=== PATIENT | female | born 1965 | race Caucasian/White ===

== ENCOUNTER 2018-05-12 14:05 | Inpatient (IN) ==
[2018-05-12 15:31] LABS: Bilirubin,Urine Negative (Negative); Blood,Urine Negative (Negative); Clarity,Urine Clear (Clear); Color,Urine Yellow (Yellow); Glucose,Urine (UA) >=1000 mg/dL (Normal); Ketones,Urine Negative (Negative); Leukocyte Esterase,Urine Small (Negative); Nitrite,Urine Negative (Negative); Protein,Urine Negative (Neg-Trace); Specific Gravity,Urine > 1.030 (1.010-1.025); Urobilinogen,Urine Normal (Normal)
[2018-05-12 15:45] LABS: Bacteria,Urine Few per hpf (None-Few); RBC,Urine 0-3 per hpf (0-3); Squamous Epithelial Cell,Urine Few per lpf (None-Few); WBC,Urine 0-3 per hpf (0-3); Yeast,Urine Few per hpf (None Seen)
[2018-05-12] MEDS ORDERED: Ondansetron 4 MG/2 ML VIAL IVP ONE ×2 (16:00→16:52)
--- NOTE | 2018-05-12 16:15 | Emergency Department Note ---
Disposition Clinical Impression: Abdominal pain, Dehydration, Hyperglycemia Disposition: Admitted As Inpatient Condition: Fair Time of Disposition: 17:59 General Adult HPI - General Chief complaint: ED Abdominal Pain Stated complaint: "abd pain,have crohn's" Time Seen by Provider: 05/12/18 15:33 Source: patient Limitations: no limitations Nursing Notes Reviewed: Yes Vital Signs Reviewed: Yes - History of Present Illness HPI Narrative: 52-year-old female presents to the ED with 2 days of abdominal pain, nausea, and vomiting. She has a history of Crohn's disease with a colostomy and ileostomy both reversed. She also has a long and complicated history to include type 2 diabetes, fibromyalgia, 2 heart attacks and 2 strokes. She has been unable to tolerate solid food intake although she is still taking in liquids. She has noted decreased urine output and when she does produce urine it is clear in color. She notes a sensation of frequency and urgency along with some cramping while she is urinating. She also notes that she has had a change in the caliber and quality of her stool it is normally liquid, but yesterday it was far more solid. She describes her abdominal pain as sharp and crampy in nature and diffuse in location although worse on the right side. The pain is constant, it does not radiate, nothing makes it better, nothing makes it worse, and it is rated as a 10 out of 10 in severity. She also notes that her blood sugars have been elevated in the 500 range whereas normal for her is in the 120's. She reports checking her sugars four times daily. Onset (ago): day(s) (1) Location: abdomen Pain Scale: 10 - Related Data Home Medications Medication Instructions Recorded Confirmed Insulin ASPART [NovoLOG] 10 unit SQ TIDWM 05/12/18 05/12/18 Insulin DETEMIR [Levemir] 50 unit SQ HS 05/12/18 05/12/18 Trazodone HCl 300 mg PO HS 05/12/18 05/12/18 Allergies Allergy/AdvReac Type Severity Reaction Status Date / Time aspirin Allergy Anaphylaxis Verified 05/12/18 14:13 Cefaclor [From Ceclor] Allergy Rash Verified 05/12/18 14:13 cephalexin [From Keflex] Allergy Rash Verified 05/12/18 14:13 Diclofenac [From Voltaren] Allergy Rash Verified 05/12/18 14:13 diphenhydramine Allergy Rash Verified 05/12/18 14:13 [From Benadryl] fentanyl Allergy Rash Verified 05/12/18 14:13 ketorolac [From Toradol] Allergy Rash Verified 05/12/18 14:13 latex Allergy Rash Verified 05/12/18 14:13 Penicillins Allergy Anaphylaxis Verified 05/12/18 14:13 prochlorperazine Allergy Rash Verified 05/12/18 14:13 [From Compazine] promethazine [From Phenergan] Allergy Rash Verified 05/12/18 14:13 Sulfa (Sulfonamide Allergy Rash Verified 05/12/18 14:13 Antibiotics) sulfamethoxazole Allergy Rash Verified 05/12/18 14:13 [From Bactrim] sumatriptan [From Imitrex] Allergy Rash Verified 05/12/18 14:13 tramadol Allergy Rash Verified 05/12/18 14:13 trimethoprim [From Bactrim] Allergy Rash Verified 05/12/18 14:13 Constitutional: Denies: fever, chills Eyes: Denies: eye pain, eye discharge, vision change ENT ED: Denies: ear pain, throat pain, dental pain, hearing loss, epistaxis, congestion, dysphagia Cardiovascular: Denies: chest pain, palpitations Respiratory: Denies: cough, wheezes Gastrointestinal: Reports: abdominal pain, nausea, vomiting Genitourinary: Reports: urgency, frequency. Denies: dysuria Musculoskeletal: Reports: back pain (bilateral, near T10) Integumentary: Denies: rash, abrasion, lesions Neurological: Reports: headache. Denies: weakness, numbness, paresthesias Psychiatric: Denies: anxiety, depression, suicidal thoughts, homicidal thoughts , auditory hallucinations, visual hallucinations Endocrine: Reports: fatigue, polydipsia Hematological/Lymphatic: Denies: easy bleeding, easy bruising Past Medical History - Past Medical History Source: patient Medical history: Reports: coronary artery disease, CVA, diabetes, fibromyalgia, myocardial infarction Surgical history: Reports: appendectomy, cholecystectomy, colostomy, hysterectomy, other (ileostomy, colostomy and ileostomy reversal) Psychiatric history: Reports: anxiety, depression - Social History Smoking Status: Current every day smoker Smokeless Tobacco Status: No Alcohol use: Reports: none Drug use: Reports: none Physical Exam - General Limitations: no limitations General appearance: alert, in no apparent distress - Head Head exam: atraumatic, normocephalic - Eye Eye exam: Present: normal appearance, PERRL - ENT ENT exam: normal oropharynx, mucous membranes dry - Neck Neck exam: Present: normal inspection - Chest Chest inspection: Present: symmetric chest wall rise - Respiratory Respiratory exam: Present: normal lung sounds bilaterally - Cardiovascular Cardiovascular exam: Present: regular rate, normal rhythm, normal heart sounds - Abdominal Exam Abdominal exam: Present: soft, tenderness, normal bowel sounds Abdominal tenderness: Present: suprapubic, diffuse - Extremities Exam Extremities exam: Present: normal inspection - Expanded Lower Extremity Exam Lower leg exam: Present: normal inspection. Absent: swelling - Back Exam Back exam: Present: CVA tenderness (R), CVA tenderness (L) - Neurological Exam Neurological exam: Present: alert, oriented X3 - Expanded Neurological Exam Motor strength - LUE: 5/5 Motor strength - RUE: 5/5 - Psychiatric Psychiatric exam: Present: normal affect - Skin Skin exam: Present: warm, dry, normal color Course Vital Signs Temperature 98 F 05/12/18 14:06 Pulse Rate 88 05/12/18 14:06 Respiratory Rate 18 05/12/18 14:06 Blood Pressure 144/88 05/12/18 14:06 O2 Sat by Pulse Oximetry 98 05/12/18 14:06 Temperature 98 F 05/12/18 14:06 Pulse Rate 88 05/12/18 14:06 Respiratory Rate 18 05/12/18 14:06 Blood Pressure 144/88 05/12/18 14:06 O2 Sat by Pulse Oximetry 98 05/12/18 14:06 Oxygen Delivery Oxygen Delivery Room Air Medical Decision Making - [facility] Narrative Medical decision making narrative: 52 year old patient presented to the ED with complaints of nausea, vomiting, and abdominal pain after moving over the weekend in the heat. Patient was given Zofran for nausea, had labs drawn, and went for a non-contrast CT scan of the Abd and pelvis. Patient's lab results showed that glucose was over 700 and sodium was 125, whereas CT was unremarkable. Hyperosmolar hyperglycemic state was the presumptive diagnosis and fluid repletion was started through peripheral IV. Pt was given morphine for pain. Will continue to monitor glucose with bedside glucose checks and replete fluids as necessary. Spoke with the hospitalist paper conservator and he agreed to admit the patient and asked that we start an insulin drip along with fluids in the department with continued glucose measurement. - Lab Data Result diagrams: 05/12/18 16:14 05/12/18 16:15 Lab Results 05/12/18 05/12/18 05/12/18 Range/Units 15:18 16:14 16:14 WBC 9.1 (4.3-11.1) K/mcL RBC 4.92 (3.82-4.97) M/mcL Hgb 14.4 (11.5-15.4) g/dL Hct 42.5 (35.3-44.9) % MCV 86.4 (83.0-100.0) fL MCH 29.3 (28.0-33.3) pg MCHC 33.9 (31.6-35.5) g/dL RDW 13.1 (11.5-14.5) % Plt Count 162 (140-400) K/mcL MPV 13.0 H (9.4-12.4) fL Immature Gran % 0.6 (0-4) % Seg Neutrophils % 72.8 % Lymphocytes % 20.0 % Monocytes % 4.7 % Eosinophils % 1.5 % Basophils % 0.4 % Neutrophils # 6.6 (1.6-8.9) K/mcL Lymphocytes # 1.8 (0.6-4.6) K/mcL Monocytes # 0.4 (0.0-1.3) K/mcL Eosinophils # 0.1 (0.0-0.6) K/mcL Basophils # 0.0 (0.0-0.2) K/mcL VBG pH (7.32-7.42) pH Units VBG pCO2 (41-51) mmHg VBG pO2 (25-50) mmHg VBG HCO3 (21-27) mEq/L Sodium (136-145) mEq/L Potassium (3.5-5.1) mEq/L Chloride (98-107) mEq/L Carbon Dioxide (23-29) mEq/L BUN (6-20) mg/dL Creatinine (0.60-1.20) mg/dL Est GFR ( Amer) (> 60) Est GFR (Non-Af Amer) (> 60) BUN/Creatinine Ratio (6-26) Glucose (70-105) mg/dL Est Mean Plasma Glucose mg/dl Hemoglobin A1c ( - 5.6) % Calculated Osmolality (280-300) Calcium (8.6-10.3) mg/dL Total Bilirubin (0.3-1.0) mg/dL Direct Bilirubin (0.0-0.2) mg/dL Indirect Bilirubin (0.0-1.2) mg/dL AST (13-39) Units/L ALT (7-52) Units/L Alkaline Phosphatase (34-104) Units/L Serum Total Protein (6.4-8.9) g/dL Albumin (3.5-5.7) g/dL Globulin (2.4-3.5) g/dL Albumin/Globulin Ratio (1.1-2.2) Amylase (29-103) Units/L Lipase (11-82) Units/L Beta-Hydroxybutyric Acd 0.88 H (0.02-0.27) mmol/L Urine Color Yellow (Yellow) Urine Clarity Clear (Clear) Urine pH 6.0 (5.0-8.0) pH Units Ur Specific [place] > 1.030 H (1.010-1.025) Urine Protein Negative (Neg-Trace) mg/dL Urine Glucose (UA) >=1000 H (Normal) mg/dL Urine Ketones Negative (Negative) mg/dL Urine Blood Negative (Negative) Urine Nitrite Negative (Negative) Urine Bilirubin Negative (Negative) Urine Urobilinogen Normal (Normal) mg/dL Ur Leukocyte Esterase Small H (Negative) Urine Microscopic RBC 0-3 (0-3) per hpf Urine Microscopic WBC 0-3 (0-3) per hpf Ur Squamous Epith Cells Few (None-Few) per lpf Urine Bacteria Few (None-Few) per hpf Urine Yeast Few H (None Seen) per hpf Ur Culture Indicated? YES A (NO) 05/12/18 05/12/18 05/12/18 Range/Units 16:15 17:06 17:16 WBC (4.3-11.1) K/mcL RBC (3.82-4.97) M/mcL Hgb (11.5-15.4) g/dL Hct (35.3-44.9) % MCV (83.0-100.0) fL MCH (28.0-33.3) pg MCHC (31.6-35.5) g/dL RDW (11.5-14.5) % Plt Count (140-400) K/mcL MPV (9.4-12.4) fL Immature Gran % (0-4) % Seg Neutrophils % % Lymphocytes % % Monocytes % % Eosinophils % % Basophils % % Neutrophils # (1.6-8.9) K/mcL Lymphocytes # (0.6-4.6) K/mcL Monocytes # (0.0-1.3) K/mcL Eosinophils # (0.0-0.6) K/mcL Basophils # (0.0-0.2) K/mcL VBG pH 7.53 H (7.32-7.42) pH Units VBG pCO2 25 L (41-51) mmHg VBG pO2 199 H (25-50) mmHg VBG HCO3 21 (21-27) mEq/L Sodium 125 L (136-145) mEq/L Potassium 3.9 (3.5-5.1) mEq/L Chloride 93 L (98-107) mEq/L Carbon Dioxide 23 (23-29) mEq/L BUN 5 L (6-20) mg/dL Creatinine 0.89 (0.60-1.20) mg/dL Est GFR ( Amer) > 60 (> 60) Est GFR (Non-Af Amer) > 60 (> 60) BUN/Creatinine Ratio 6 (6-26) Glucose 778 H* (70-105) mg/dL Est Mean Plasma Glucose 384 mg/dl Hemoglobin A1c 15.0 H ( - 5.6) % Calculated Osmolality 295 (280-300) Calcium 8.9 (8.6-10.3) mg/dL Total Bilirubin 0.6 (0.3-1.0) mg/dL Direct Bilirubin 0.1 (0.0-0.2) mg/dL Indirect Bilirubin 0.5 (0.0-1.2) mg/dL AST 20 (13-39) Units/L ALT 20 (7-52) Units/L Alkaline Phosphatase 128 H (34-104) Units/L Serum Total Protein 6.7 (6.4-8.9) g/dL Albumin 3.9 (3.5-5.7) g/dL Globulin 2.8 (2.4-3.5) g/dL Albumin/Globulin Ratio 1.4 (1.1-2.2) Amylase < 10 L (29-103) Units/L Lipase 20 (11-82) Units/L Beta-Hydroxybutyric Acd (0.02-0.27) mmol/L Urine Color (Yellow) Urine Clarity (Clear) Urine pH (5.0-8.0) pH Units Ur Specific [place] (1.010-1.025) Urine Protein (Neg-Trace) mg/dL Urine Glucose (UA) (Normal) mg/dL Urine Ketones (Negative) mg/dL Urine Blood (Negative) Urine Nitrite (Negative) Urine Bilirubin (Negative) Urine Urobilinogen (Normal) mg/dL Ur Leukocyte Esterase (Negative) Urine Microscopic RBC (0-3) per hpf Urine Microscopic WBC (0-3) per hpf Ur Squamous Epith Cells (None-Few) per lpf Urine Bacteria (None-Few) per hpf Urine Yeast (None Seen) per hpf Ur Culture Indicated? (NO) Attestation Statement - Attestation Attestation: I, Tom Maxwell DO, examined this patient [id number] and my medical decision-making was reviewed with Dr. Lexi Rosado, Resident Physician. I agree with the documented findings, disposition and treatment plan as described except to the extent set forth below. Please see my progress notes for details.
[2018-05-12 16:51] LABS: Alanine Aminotransferase 20 Units/L (7-52); Albumin 3.9 g/dL (3.5-5.7); Albumin/Globulin Ratio 1.4 (1.1-2.2); Alkaline Phosphatase 128 Units/L (34-104); Amylase < 10 Units/L (29-103); Aspartate Amino Transferase 20 Units/L (13-39); BUN/Creatinine Ratio 6 (6-26); Bilirubin,Direct 0.1 mg/dL (0.0-0.2); Bilirubin,Indirect 0.5 mg/dL (0.0-1.2); Bilirubin,Total 0.6 mg/dL (0.3-1.0); Blood Urea Nitrogen 5 mg/dL (6-20); Calcium 8.9 mg/dL (8.6-10.3); Carbon Dioxide 23 mEq/L (23-29); Chloride 93 mEq/L (98-107); Globulin 2.8 g/dL (2.4-3.5); Glucose 778 mg/dL (70-105); Lipase 20 Units/L (11-82); Osmolality,Calculated 295 (280-300); Potassium 3.9 mEq/L (3.5-5.1); Sodium 125 mEq/L (136-145); Total Protein 6.7 g/dL (6.4-8.9); eGFR For African Americans > 60 (> 60); eGFR For Non-African Americans > 60 (> 60)
[2018-05-12] MEDS ORDERED: *HR* Morphine 2 MG/ML SYRINGE IVP ONE (16:52)
[2018-05-12] MEDS ORDERED: 0.9 % Sodium Chloride 1,000 ML IVC ONE (16:52)
[2018-05-12 17:11] LABS: Basophils % 0.4 %; Eosinophils # 0.1 K/mcL (0.0-0.6); Eosinophils % 1.5 %; Hematocrit 42.5 % (35.3-44.9); Hemoglobin 14.4 g/dL (11.5-15.4); Immature Granulocytes % 0.6 % (0-4); Lymphocytes # 1.8 K/mcL (0.6-4.6); Mean Corpuscular HGB Conc 33.9 g/dL (31.6-35.5); Mean Corpuscular Hemoglobin 29.3 pg (28.0-33.3); Mean Corpuscular Volume 86.4 fL (83.0-100.0); Monocytes # 0.4 K/mcL (0.0-1.3); Monocytes % 4.7 %; Neutrophils # 6.6 K/mcL (1.6-8.9); Platelet Count 162 K/mcL (140-400); Red Blood Count 4.92 M/mcL (3.82-4.97); Red Cell Distribution Width 13.1 % (11.5-14.5); Segmented Neutrophils % 72.8 %
[2018-05-12 17:18] LABS: VBG HCO3 21 mEq/L (21-27); VBG PCO2 25 mmHg (41-51); VBG PH 7.53 pH Units (7.32-7.42); VBG PO2 199 mmHg (25-50)
[2018-05-12] MEDS ORDERED: *HR* Dextrose 50 % in Water (Syg) 50 ML SYRINGE IVP PRN (17:29)
[2018-05-12] MEDS ORDERED: Insulin Regular, Human 100 UNIT/ML IV ONE (17:32)
[2018-05-12] MEDS: 0.9 % Sodium Chloride 1,000 ML IVC SCH ×2 (17:42→18:52)
[2018-05-12] MEDS ORDERED: Insulin Human Regular 100 UNIT in 0.9 % Sodium Chloride 100 ML IVC SCH ×2 (18:00→21:30)
[2018-05-12 18:01] LABS: Estimated Average Glucose 384 mg/dl
--- NOTE | 2018-05-12 18:06 | Emergency Department Note ---
Disposition Clinical Impression: Abdominal pain, Dehydration, Hyperglycemia Disposition: Admitted As Inpatient Condition: Fair Time of Disposition: 18:06 General Adult HPI - General Chief complaint: ED Abdominal Pain Stated complaint: "abd pain,have crohn's" Time Seen by Provider: 05/12/18 15:33 Source: patient Limitations: no limitations - History of Present Illness Location: abdomen Pain Scale: 10 - Related Data Home Medications Medication Instructions Recorded Confirmed Insulin ASPART [NovoLOG] 10 unit SQ TIDWM 05/12/18 05/12/18 Insulin DETEMIR [Levemir] 50 unit SQ HS 05/12/18 05/12/18 Trazodone HCl 300 mg PO HS 05/12/18 05/12/18 Allergies Allergy/AdvReac Type Severity Reaction Status Date / Time aspirin Allergy Anaphylaxis Verified 05/12/18 14:13 Cefaclor [From Ceclor] Allergy Rash Verified 05/12/18 14:13 cephalexin [From Keflex] Allergy Rash Verified 05/12/18 14:13 Diclofenac [From Voltaren] Allergy Rash Verified 05/12/18 14:13 diphenhydramine Allergy Rash Verified 05/12/18 14:13 [From Benadryl] fentanyl Allergy Rash Verified 05/12/18 14:13 ketorolac [From Toradol] Allergy Rash Verified 05/12/18 14:13 latex Allergy Rash Verified 05/12/18 14:13 Penicillins Allergy Anaphylaxis Verified 05/12/18 14:13 prochlorperazine Allergy Rash Verified 05/12/18 14:13 [From Compazine] promethazine [From Phenergan] Allergy Rash Verified 05/12/18 14:13 Sulfa (Sulfonamide Allergy Rash Verified 05/12/18 14:13 Antibiotics) sulfamethoxazole Allergy Rash Verified 05/12/18 14:13 [From Bactrim] sumatriptan [From Imitrex] Allergy Rash Verified 05/12/18 14:13 tramadol Allergy Rash Verified 05/12/18 14:13 trimethoprim [From Bactrim] Allergy Rash Verified 05/12/18 14:13 Constitutional: Denies: fever, chills Eyes: Denies: eye pain, eye discharge, vision change ENT ED: Denies: ear pain, throat pain, dental pain, hearing loss, epistaxis, congestion, dysphagia Cardiovascular: Denies: chest pain, palpitations Respiratory: Denies: cough, wheezes Gastrointestinal: Reports: abdominal pain, nausea, vomiting Genitourinary: Reports: urgency, frequency. Denies: dysuria Musculoskeletal: Reports: back pain (bilateral, near T10) Integumentary: Denies: rash, abrasion, lesions Neurological: Reports: headache. Denies: weakness, numbness, paresthesias Psychiatric: Denies: anxiety, depression, suicidal thoughts, homicidal thoughts , auditory hallucinations, visual hallucinations Endocrine: Reports: fatigue, polydipsia Hematological/Lymphatic: Denies: easy bleeding, easy bruising Past Medical History - Past Medical History Medical history: Reports: coronary artery disease, CVA, diabetes, fibromyalgia, myocardial infarction Surgical history: Reports: appendectomy, cholecystectomy, colostomy, hysterectomy, other (ileostomy, colostomy and ileostomy reversal) Psychiatric history: Reports: anxiety, depression - Social History Smoking Status: Current every day smoker Smokeless Tobacco Status: No Alcohol use: Reports: none Drug use: Reports: none Physical Exam - General Limitations: no limitations General appearance: alert, in no apparent distress Course Vital Signs Temperature 98 F 05/12/18 14:06 Pulse Rate 88 05/12/18 14:06 Respiratory Rate 18 05/12/18 14:06 Blood Pressure 144/88 05/12/18 14:06 O2 Sat by Pulse Oximetry 98 05/12/18 14:06 Temperature 98 F 05/12/18 14:06 Pulse Rate 88 05/12/18 14:06 Respiratory Rate 18 05/12/18 14:06 Blood Pressure 144/88 05/12/18 14:06 O2 Sat by Pulse Oximetry 98 05/12/18 14:06 Oxygen Delivery Oxygen Delivery Room Air Medical Decision Making - Lab Data Result diagrams: 05/12/18 16:14 05/12/18 16:15 Lab Results 05/12/18 05/12/18 05/12/18 Range/Units 15:18 16:14 16:14 WBC 9.1 (4.3-11.1) K/mcL RBC 4.92 (3.82-4.97) M/mcL Hgb 14.4 (11.5-15.4) g/dL Hct 42.5 (35.3-44.9) % MCV 86.4 (83.0-100.0) fL MCH 29.3 (28.0-33.3) pg MCHC 33.9 (31.6-35.5) g/dL RDW 13.1 (11.5-14.5) % Plt Count 162 (140-400) K/mcL MPV 13.0 H (9.4-12.4) fL Immature Gran % 0.6 (0-4) % Seg Neutrophils % 72.8 % Lymphocytes % 20.0 % Monocytes % 4.7 % Eosinophils % 1.5 % Basophils % 0.4 % Neutrophils # 6.6 (1.6-8.9) K/mcL Lymphocytes # 1.8 (0.6-4.6) K/mcL Monocytes # 0.4 (0.0-1.3) K/mcL Eosinophils # 0.1 (0.0-0.6) K/mcL Basophils # 0.0 (0.0-0.2) K/mcL VBG pH (7.32-7.42) pH Units VBG pCO2 (41-51) mmHg VBG pO2 (25-50) mmHg VBG HCO3 (21-27) mEq/L Sodium (136-145) mEq/L Potassium (3.5-5.1) mEq/L Chloride (98-107) mEq/L Carbon Dioxide (23-29) mEq/L BUN (6-20) mg/dL Creatinine (0.60-1.20) mg/dL Est GFR ( Amer) (> 60) Est GFR (Non-Af Amer) (> 60) BUN/Creatinine Ratio (6-26) Glucose (70-105) mg/dL Calculated Osmolality (280-300) Calcium (8.6-10.3) mg/dL Total Bilirubin (0.3-1.0) mg/dL Direct Bilirubin (0.0-0.2) mg/dL Indirect Bilirubin (0.0-1.2) mg/dL AST (13-39) Units/L ALT (7-52) Units/L Alkaline Phosphatase (34-104) Units/L Serum Total Protein (6.4-8.9) g/dL Albumin (3.5-5.7) g/dL Globulin (2.4-3.5) g/dL Albumin/Globulin Ratio (1.1-2.2) Amylase (29-103) Units/L Lipase (11-82) Units/L Beta-Hydroxybutyric Acd 0.88 H (0.02-0.27) mmol/L Urine Color Yellow (Yellow) Urine Clarity Clear (Clear) Urine pH 6.0 (5.0-8.0) pH Units Ur Specific [place] > 1.030 H (1.010-1.025) Urine Protein Negative (Neg-Trace) mg/dL Urine Glucose (UA) >=1000 H (Normal) mg/dL Urine Ketones Negative (Negative) mg/dL Urine Blood Negative (Negative) Urine Nitrite Negative (Negative) Urine Bilirubin Negative (Negative) Urine Urobilinogen Normal (Normal) mg/dL Ur Leukocyte Esterase Small H (Negative) Urine Microscopic RBC 0-3 (0-3) per hpf Urine Microscopic WBC 0-3 (0-3) per hpf Ur Squamous Epith Cells Few (None-Few) per lpf Urine Bacteria Few (None-Few) per hpf Urine Yeast Few H (None Seen) per hpf Ur Culture Indicated? YES A (NO) 05/12/18 05/12/18 Range/Units 16:15 17:16 WBC (4.3-11.1) K/mcL RBC (3.82-4.97) M/mcL Hgb (11.5-15.4) g/dL Hct (35.3-44.9) % MCV (83.0-100.0) fL MCH (28.0-33.3) pg MCHC (31.6-35.5) g/dL RDW (11.5-14.5) % Plt Count (140-400) K/mcL MPV (9.4-12.4) fL Immature Gran % (0-4) % Seg Neutrophils % % Lymphocytes % % Monocytes % % Eosinophils % % Basophils % % Neutrophils # (1.6-8.9) K/mcL Lymphocytes # (0.6-4.6) K/mcL Monocytes # (0.0-1.3) K/mcL Eosinophils # (0.0-0.6) K/mcL Basophils # (0.0-0.2) K/mcL VBG pH 7.53 H (7.32-7.42) pH Units VBG pCO2 25 L (41-51) mmHg VBG pO2 199 H (25-50) mmHg VBG HCO3 21 (21-27) mEq/L Sodium 125 L (136-145) mEq/L Potassium 3.9 (3.5-5.1) mEq/L Chloride 93 L (98-107) mEq/L Carbon Dioxide 23 (23-29) mEq/L BUN 5 L (6-20) mg/dL Creatinine 0.89 (0.60-1.20) mg/dL Est GFR ( Amer) > 60 (> 60) Est GFR (Non-Af Amer) > 60 (> 60) BUN/Creatinine Ratio 6 (6-26) Glucose 778 H* (70-105) mg/dL Calculated Osmolality 295 (280-300) Calcium 8.9 (8.6-10.3) mg/dL Total Bilirubin 0.6 (0.3-1.0) mg/dL Direct Bilirubin 0.1 (0.0-0.2) mg/dL Indirect Bilirubin 0.5 (0.0-1.2) mg/dL AST 20 (13-39) Units/L ALT 20 (7-52) Units/L Alkaline Phosphatase 128 H (34-104) Units/L Serum Total Protein 6.7 (6.4-8.9) g/dL Albumin 3.9 (3.5-5.7) g/dL Globulin 2.8 (2.4-3.5) g/dL Albumin/Globulin Ratio 1.4 (1.1-2.2) Amylase < 10 L (29-103) Units/L Lipase 20 (11-82) Units/L Beta-Hydroxybutyric Acd (0.02-0.27) mmol/L Urine Color (Yellow) Urine Clarity (Clear) Urine pH (5.0-8.0) pH Units Ur Specific [place] (1.010-1.025) Urine Protein (Neg-Trace) mg/dL Urine Glucose (UA) (Normal) mg/dL Urine Ketones (Negative) mg/dL Urine Blood (Negative) Urine Nitrite (Negative) Urine Bilirubin (Negative) Urine Urobilinogen (Normal) mg/dL Ur Leukocyte Esterase (Negative) Urine Microscopic RBC (0-3) per hpf Urine Microscopic WBC (0-3) per hpf Ur Squamous Epith Cells (None-Few) per lpf Urine Bacteria (None-Few) per hpf Urine Yeast (None Seen) per hpf Ur Culture Indicated? (NO) Critical Care Time Critical Care Time: Yes Total Critical Care Time: 35 Attestation: Critical care performed: Time is exclusive of separately billable procedures. Time includes: direct patient care, patient reassessment, coordination of patient care, interpretation of data (laboratory data, radiology data, and respiratory data), review of patient's medical records, medical consultation and documentation of patient care. Procedures included in critical care time: Procedures excluded from critical care time: Attestation Statement - Attestation Attestation: I, Tom Maxwell DO, examined this patient [id number] and my medical decision-making was reviewed with Dr. Lexi Rosado, Resident Physician. I agree with the documented findings, disposition and treatment plan as described except to the extent set forth below. Please see my progress notes for details. 52-year-old female presents emergency room with complaint of abdominal pain nausea, diarrhea diarrhea, dehydration, and released color to the urine as well as decreased urinary output. Patient denies any chest pain shortness breath headache vision changes no recent fevers or chills. Patient denies any trauma or injury. Patient just transferred to this facility for medical treatment secondary to being seen in outside facility moving to this area. Vital signs reviewed and are otherwise unremarkable. On physical exam patient is resting in the bed her lungs are clear heart is regular mucous membranes are slightly dry. Oropharynx is patent trachea is midline. Patient has a history of diabetes multiple medical issues. We will addresses many of these effectively as we can. She also is on Crohn's disease and does not have any specific recollection of whether or not she is on immunosuppression medication or steroids. Patient will be started on fluid resuscitation at this time. Nausea medication pain medication will be given. Labs including chest x-ray CBC chemistry, beta hydroxy butyric acid, VBG, urinalysis will be ordered and collected this time. Patient will be evaluated in detail in the disposition will be determined. Physical exam does not show any acute pathology on evaluation outside of abdominal discomfort. She does not have any point tenderness or guarding at this time is no rigidity and no peritoneal symptoms. No signs of pitting edema swelling or irritation this point. Patient's disposition will be determined. See detailed documentation the physical exam, medical intervention, medical decision-making and disposition in the resident physician's note. No critical care by the patient's treatment course at this time. 1800 Patient does not have any signs of acute diabetic ketoacidosis. She does have what appears to be hyperosmolar hyperglycemic event at this time. She will be started on fluid resuscitation and insulin drip. Patient will have pain medication nausea medication provided as needed. 2 L of fluid added in addition to the formula started initially. Patient was discussed with the hospitals for definitive management treatment. The pain in her stomach could be secondary to the diabetic related issues but. Evaluation will be needed. CT imaging of the abdomen is otherwise in unremarkable and was reviewed otherwise stable. Patient's corrected sodium is approximately 135. Potassium is stable. She does not have abnormality in her bicarbonate she does not have a gap. Patient will be admitted for definitive management stabilization. The hospitalist Dr. Pham reviewed the case and is comfortable with the plan is no other complaints questions or issues at this time. Approximately 35 minutes of critical care by the patient's treatment course secondary to evaluations medical intervention and treatment
--- NOTE | 2018-05-12 19:33 | Internal Med History&Physical ---
Date of Encounter: 05/12/18 Time of Encounter: 20:00 Internal Medicine - H&P: HPI Chief complaint: abdominal pain Admitted From: Home Plans for Post Hospital Care: Home History of present illness: Ms. Lyles is a 52 year old female with PMHx of Crohn's disease s/p colostomy and ileostomy which have been reversed, poorly controlled DM, presented to the Ed with 3 day history of abdominal pain. Sharp and crampy in nature, generalized but worst on the right side. Constant without any radiation, no relieving or aggravating factors. Associated with nausea and multiple episodes of vomiting. Non-bilious, non-projectile. She always has loose stools due to Crohn's disease but there has not been any change in stool consistency. She was not able to keep anything down and also noticed that she was not urinating as often as before. No dysuria, hematuria, or urinary urgency. She also notes that her blood sugars have been elevated in the 500 range whereas normal for her is in the 120's. She reports checking her sugars four times daily and claims compliance to insulin. [place] and needs to establish care with new doctors here. Past Med Surg Social Fam HX - Past Medical History Medical history: coronary artery disease, CVA, diabetes, fibromyalgia, myocardial infarction Additional medical history: crohns, diverticulitis, hernia, complex migraines Psychiatric history: anxiety, depression - Past Surgical History Surgical History: appendectomy, cholecystectomy, colostomy, hysterectomy, other (ileostomy, colostomy and ileostomy reversal) Additional surgical history: ileostomy with reversal - Social History Smoking Status: Current every day smoker Packs per day: 0.25 Smokeless Tobacco Status: No Alcohol use: none Drug use: none - Family History Mother History Unknown: Yes Father History Unknown: Yes Internal Medicine - H&P: Meds Insulin ASPART [NovoLOG] 10 unit SQ TIDWM 05/12/18 [History] Insulin DETEMIR [Levemir] 50 unit SQ HS 05/12/18 [History] Trazodone HCl 300 mg PO HS 05/12/18 [History] 3 Allergy/AdvReac Type Severity Reaction Status Date / Time aspirin Allergy Anaphylaxis Verified 05/12/18 14:13 Cefaclor [From Ceclor] Allergy Rash Verified 05/12/18 14:13 cephalexin [From Keflex] Allergy Rash Verified 05/12/18 14:13 Diclofenac [From Voltaren] Allergy Rash Verified 05/12/18 14:13 diphenhydramine Allergy Rash Verified 05/12/18 14:13 [From Benadryl] fentanyl Allergy Rash Verified 05/12/18 14:13 ketorolac [From Toradol] Allergy Rash Verified 05/12/18 14:13 latex Allergy Rash Verified 05/12/18 14:13 Penicillins Allergy Anaphylaxis Verified 05/12/18 14:13 prochlorperazine Allergy Rash Verified 05/12/18 14:13 [From Compazine] promethazine [From Phenergan] Allergy Rash Verified 05/12/18 14:13 Sulfa (Sulfonamide Allergy Rash Verified 05/12/18 14:13 Antibiotics) sulfamethoxazole Allergy Rash Verified 05/12/18 14:13 [From Bactrim] sumatriptan [From Imitrex] Allergy Rash Verified 05/12/18 14:13 tramadol Allergy Rash Verified 05/12/18 14:13 trimethoprim [From Bactrim] Allergy Rash Verified 05/12/18 14:13 All Systems PM: A 10-system review of systems was performed and is negative for pertinent findings except as documented above in the HPI. - Constitutional Vitals: Temp Pulse Resp BP Pulse Ox 98 F 88 18 144/88 98 05/12/18 14:06 05/12/18 14:06 05/12/18 14:06 05/12/18 14:06 05/12/18 14:06 Exam: General: Alert and oriented HEENT:EOM, pupils equal, round, and reactive. Dry oral mucosa Cardiovascular:Normal S1 & S2, no murmurs or gallops. No JVD. Pulse regular. Lungs:Normal breath sounds, no wheezes or crackles. Abdomen:Soft, moderate left sided tenderness without rebound/guarding, no rigidity. Extremities:No deformity, no edema or tenderness, no joint swelling. Neurological:Normal cognition and motor skills. Skin:Normal color, no rash, no lesions. Pulses:Carotid and radial pulses normal +2. Rest of the physical exam is non-contributory Internal Med - H&P Results - Labs CBC & Chem 7: 05/12/18 16:14 05/12/18 16:15 - ABG Interpretation Interpretation: ABG interpreted by me Interpretation: respiratory alkalosis - Diagnostic Studies CT scan - abdomen Additional comments: Previous abdominal surgeries without gross complication, small fat-containing midline ventral hernia without evidence of bowel obstruction. - Assessment and plan (1) Hyperosmolar non-ketotic state in patient with type 2 diabetes mellitus Current Visit: Yes Status: Acute Assessment and plan: Likely to be due to non-compliance given her A1c being 15 and quick correction of glucose with IV insulin gtt Patient continues to have nausea and abdominal pain, will continue insulin gtt tonight IVF as per protocol, will check BMP once more tonight for potassium keep NPO, allow ice chips Home regimen is levemir 50U, novolog 10U TID, can transition to her home regimen once she is able to take by mouth (2) Diabetes mellitus Current Visit: Yes Status: Acute Assessment and plan: Poorly controlled, likely due to poor compliance Continue with DKA/HHS protocol and will transition to her home regimen Qualifiers: Diabetes mellitus type: type 2 Diabetes mellitus long goods drier insulin use: with long goods drier use Diabetes mellitus complication status: with unspecified complications Qualified Code(s): E11.8 - Type 2 diabetes mellitus with unspecified complications; Z79.4 - long term care social worker (current) use of insulin (3) Anxiety Current Visit: Yes Status: Acute Assessment and plan: States that she is on ativan and klonipin at home but unable to verify will keep her on PRN ativan while inpatient (4) History of CVA (cerebrovascular accident) Current Visit: Yes Status: Acute Assessment and plan: unsure why patient is not on ASA, statin will need to follow up outpatient (5) History of coronary artery disease Current Visit: Yes Status: Acute Assessment and plan: unsure why patient is not on ASA, bb, statin will need to follow up outpatient (6) History of Crohn's disease Current Visit: Yes Status: Acute Assessment and plan: s/p colostomy, ileostomy that have been reversed Not in flare up, establish follow up outpatient - Time Spent With Patient Total time spent is greater than 50% in coordination of care (as documented) at patient's floor/unit and/or counseling patient:
[2018-05-12] MEDS ORDERED: 0.9 % Sodium Chloride w KCl 20 MEQ/1,000 ML MLS IVC ONE (19:51)
[2018-05-12] MEDS ORDERED: Ondansetron 4 MG/2 ML VIAL IVP PRN (20:26)
[2018-05-12] MEDS ORDERED: OXYCODONE Oral CONC 10 MG/0.5 ML ORAL.SYG SL PRN (20:26)
[2018-05-12] MEDS ORDERED: Naloxone 0.4 MG/ML INJ IVP PRN (20:28)
[2018-05-12] MEDS ORDERED: D5% in 0.45% NACL w KCl 20 MEQ/1,000 ML MLS IVC PRN (20:28)
[2018-05-12] MEDS ORDERED: *HR* OxyCODONE Immed Rel 5 MG TABLET PO PRN (21:00)
[2018-05-12] MEDS ORDERED: traZODone 50 MG TABLET PO SCH (21:00)
[2018-05-12 22:23] LABS: BUN/Creatinine Ratio 6 (6-26); Blood Urea Nitrogen 4 mg/dL (6-20); Calcium 7.8 mg/dL (8.6-10.3); Carbon Dioxide 24 mEq/L (23-29); Chloride 109 mEq/L (98-107); Glucose 146 mg/dL (70-105); Osmolality,Calculated 288 (280-300); Potassium 2.9 mEq/L (3.5-5.1); Sodium 139 mEq/L (136-145); eGFR For African Americans > 60 (> 60); eGFR For Non-African Americans > 60 (> 60)
[2018-05-13] MEDS ORDERED: D5% in Water 1,000 ML IVC PRN (00:02)
[2018-05-13] MEDS ORDERED: Dextrose Gel 15 GM/37.5 ML TUBE PO PRN ×2 (00:02)
[2018-05-13] MEDS ORDERED: *HR* Dextrose 50 % in Water (Syg) 50 ML SYRINGE IVP PRN (00:02)
[2018-05-13] MEDS ORDERED: Insulin DETEMIR 100 UNIT/ML X5UNITS SQ ONE (00:15)
[2018-05-13] MEDS ORDERED: Insulin DETEMIR 100 UNIT/ML X5UNITS SQ SCH ×2 (00:24→21:00)
[2018-05-13] MEDS: *HR* LORazepam 2 MG/ML VIAL IVP PRN ×2 (01:06→08:31)
[2018-05-13] MEDS: *HR* OxyCODONE Immed Rel 5 MG TABLET PO PRN ×2 (01:09→08:32)
[2018-05-13 05:44] LABS: Basophils % 0.5 %; Eosinophils # 0.2 K/mcL (0.0-0.6); Eosinophils % 2.8 %; Hematocrit 38.1 % (35.3-44.9); Immature Granulocytes % 0.3 % (0-4); Lymphocytes # 2.2 K/mcL (0.6-4.6); Lymphocytes % 35.2 %; Mean Corpuscular HGB Conc 33.6 g/dL (31.6-35.5); Mean Corpuscular Volume 89.4 fL (83.0-100.0); Mean Platelet Volume 12.8 fL (9.4-12.4); Monocytes # 0.4 K/mcL (0.0-1.3); Monocytes % 6.5 %; Neutrophils # 3.4 K/mcL (1.6-8.9); Platelet Count 142 K/mcL (140-400); Red Blood Count 4.26 M/mcL (3.82-4.97); Red Cell Distribution Width 13.1 % (11.5-14.5); Segmented Neutrophils % 54.7 %
[2018-05-13 05:45] LABS: Hemoglobin 12.8 g/dL (11.5-15.4)
[2018-05-13] MEDS ORDERED: *HR* Heparin 5,000 UNIT/ML VIAL SQ SCH (06:00)
[2018-05-13 06:15] LABS: BUN/Creatinine Ratio 7 (6-26); Blood Urea Nitrogen 5 mg/dL (6-20); Calcium 7.7 mg/dL (8.6-10.3); Carbon Dioxide 22 mEq/L (23-29); Chloride 110 mEq/L (98-107); Glucose 281 mg/dL (70-105); Magnesium 1.7 mg/dL (1.6-2.6); Osmolality,Calculated 291 (280-300); Phosphorous 3.6 mg/dL (2.7-4.5); Sodium 137 mEq/L (136-145); eGFR For African Americans > 60 (> 60); eGFR For Non-African Americans > 60 (> 60)
[2018-05-13] MEDS ORDERED: Insulin LISPRO 300 UNITS/3 ML VIAL SQ SCH ×2 (07:30→08:00)
[2018-05-13 11:35] VITALS: BP 120/76
--- NOTE | 2018-05-13 12:20 | Discharge Summary ---
- NOTES TO OUTPATIENT PROVIDER Notes to Outpatient Provider: Patient to follow-up with [facility] for management of diabetes Date of Encounter: 05/13/18 Time of Encounter: 11:00 Hospital course: Patient is a 52-year-old female with past medical history significant for Crohn' s disease s/p colostomy and ileostomy which have been reversed, poorly controlled DM who presented to the ER on 05/12/18 due to abdominal pain. Patient reported of a three-day history of abdominal pain which she described as sharp was constant without any radiation. Patient relieving or aggravating factors. Patient did report of multiple episodes of nausea/vomiting. Patient decided to come to the ER for evaluation. In the ER, patient was found to have a blood glucose of 778. Patient was admitted to the progressive unit for hyperosmolar nonketotic state. During patients hospital stay her blood glucose levels return closer to normal limits on insulin drip. Patient was also found to have A1c 15. She was restarted on basal insulin and insulin drip was discontinued. She will be discharged home to continue her home insulin medications and to follow-up with [facility] for management of diabetes as outpatient. - Time Spent with Patient Total time spent providing and/or coordinating discharge services: - Discharge Medications Prescriptions: Insulin ASPART [NovoLOG] 10 unit SQ TIDWM #90 mls Insulin DETEMIR [Levemir] 50 unit SQ HS #30 mls Home Medications: Trazodone HCl 300 mg PO HS 05/12/18 [History] Insulin ASPART [NovoLOG] 10 unit SQ TIDWM #90 mls 05/13/18 [Rx] Insulin DETEMIR [Levemir] 50 unit SQ HS #30 mls 05/13/18 [Rx] Allergies/Adverse Reactions: 3 Allergy/AdvReac Type Severity Reaction Status Date / Time aspirin Allergy Anaphylaxis Verified 05/12/18 14:13 Cefaclor [From Ceclor] Allergy Rash Verified 05/12/18 14:13 cephalexin [From Keflex] Allergy Rash Verified 05/12/18 14:13 Diclofenac [From Voltaren] Allergy Rash Verified 05/12/18 14:13 diphenhydramine Allergy Rash Verified 05/12/18 14:13 [From Benadryl] fentanyl Allergy Rash Verified 05/12/18 14:13 ketorolac [From Toradol] Allergy Rash Verified 05/12/18 14:13 latex Allergy Rash Verified 05/12/18 14:13 Penicillins Allergy Anaphylaxis Verified 05/12/18 14:13 prochlorperazine Allergy Rash Verified 05/12/18 14:13 [From Compazine] promethazine [From Phenergan] Allergy Rash Verified 05/12/18 14:13 Sulfa (Sulfonamide Allergy Rash Verified 05/12/18 14:13 Antibiotics) sulfamethoxazole Allergy Rash Verified 05/12/18 14:13 [From Bactrim] sumatriptan [From Imitrex] Allergy Rash Verified 05/12/18 14:13 tramadol Allergy Rash Verified 05/12/18 14:13 trimethoprim [From Bactrim] Allergy Rash Verified 05/12/18 14:13 Date of admission: 05/12/18 20:33 Primary care physician: PCP NONE Consults: 05/12/18 20:55 Consult to Nutrition [CONS] Routine Comment: Consulting Provider: NUTRITION Reason for Dietary Consult: MST Score - Constitutional Vitals: Temp Pulse Resp BP Pulse Ox 98.4 F 75 18 120/76 93 05/13/18 11:31 05/13/18 11:31 05/13/18 11:31 05/13/18 11:31 05/13/18 11:31 General appearance: Present: no acute distress - Cardiovascular Cardiovascular exam: Present: RRR, +S1, +S2. Absent: diastolic murmur, gallop, rubs, systolic murmur - Patient Status Disposition: Home, Self-Care Condition: Fair - Discharge Instructions Instructions: Insulin Aspart, Recombinant (Injection), Insulin Detemir ( Injection), Diabetes Mellitus Type 2 in Adults (DC) Follow Up With: NONE,PCP [Primary Care Provider] -
== END 2018-05-13 18:00 | disposition home or self-care (01) | DRG 420 ==
LOC: EMEROO 14:05 → 2NNU 14:05 → SUATTDRO 20:33
PROVIDERS: ADMIT Student in an Organized Health Care Education/Training Program; ATTEND Hospitalist